=== PATIENT | female | born 1975 | race Caucasian/White ===

== ENCOUNTER 2022-02-23 12:18 | Outpatient (CLI) | payer OTHER | END 2022-02-23 12:31 | disposition home or self-care (01) | LOC: MAMO-SONO 12:18 | PROVIDERS: ATTEND Obstetrics & Gynecology | DX: N63 Unspecified lump in breast (principal); Z12.31 Encounter for screening mammogram for malignant neoplasm of breast; N60.01 Solitary cyst of right breast; N60.02 Solitary cyst of left breast; D25.0 Submucous leiomyoma of uterus; N83.209 Unspecified ovarian cyst, unspecified side; N84.0 Polyp of corpus uteri ==